=== PATIENT | female | born 1980 | race Caucasian/White ===

== ENCOUNTER 2017-10-06 11:19 | Emergency (ER) | payer MEDICAID ==
[~2017-10-06] VITALS: Ht 172.7 cm; Wt 108.9 kg
[~2017-10-06 11:19] MED LIST: ACETAMINOPHEN-1 EAC1 PO; BACTRIM DS TAB1 EACH PO; BUTALB-APAP-CA1 EACH PO; CIPROFLOXACIN500 M1 PO; CLEOCIN HCL300 MG PO; FLEXERIL PO; GERD MED; HEARTBURN TREAT15 MG PO; HYDROCODON-ACE1 EAC7 PO; HYDROCODONE-AP1 EAC6 PO; IBUPROFEN 600600 M1 PO; IBUPROFEN 800800 M1 PO; KEFLEX500 MG PO; LIORESAL 10 MG10 MG PO; NAPROSYN500 MG PO; NORCO 5-325 TA1 EAC1 PO; NORCO 5-325 TA1 EACH PO; OMEPRAZOLE40 MG PO; PERCOCET 5-3251 EACH PO; PHENADOZ12.5 MG RC; PREDNISONE 10 M10 MG PO; PRILOSEC 20 MG20 MG PO; PRILOSEC20 MG PO; PYRIDIUM200 MG PO; RANITIDINE 150150 M1; ROBAXIN500 MG PO; TRAMADOL 50 MG50 MG; TRAMADOL 50 MG50 MG PO; VISTARIL 25 MG25 M1 PO; ZOFRAN ODT4 MG PO; ZOFRAN4 MG PO
[2017-10-06] MEDS ORDERED: NOHOMEMEDICATIONS (11:48)
[2017-10-06] MEDS ORDERED: NORFLEX100 MG PO (15:11)
[2017-10-06] MEDS ORDERED: IBUPROFEN 600600 M1 PO (15:11)
[2017-10-06 15:23] VITALS: BP 142/92
== END 2017-10-06 15:24 | disposition home or self-care (01) ==
LOC: M.ERS 11:19
DX: S13.4XXA Sprain of ligaments of cervical spine, initial encounter (principal); S53.402A Unspecified sprain of left elbow, initial encounter; S39.012A Strain of muscle, fascia and tendon of lower back, initial encounter; S00.93XA Contusion of unspecified part of head, initial encounter; K21.9 Gastro-esophageal reflux disease without esophagitis; G43.909 Migraine, unspecified, not intractable, without status migrainosus; F17.210 Nicotine dependence, cigarettes, uncomplicated; Z88.0 Allergy status to penicillin; Z88.8 Allergy status to other drugs, medicaments and biological substances; W00.0XXA Fall on same level due to ice and snow, initial encounter; Y93.89 Activity, other specified; Y92.89 Other specified places as the place of occurrence of the external cause; Y99.8 Other external cause status

== ENCOUNTER 2018-02-25 05:15 | Emergency (ER) | payer OTHER ==
[~2018-02-25] VITALS: Ht 172.7 cm; Wt 104.3 kg
[~2018-02-25 05:15] MED LIST changes: +NOHOMEMEDICATIONS; +NORFLEX100 MG PO
[2018-02-25] MEDS ORDERED: PROMETHAZINE/C118 ML PO (05:29)
[2018-02-25] MEDS ORDERED: PREDNISONE50 MG PO (05:29)
[2018-02-25 06:10] VITALS: BP 166/78
== END 2018-02-25 06:12 | disposition home or self-care (01) ==
LOC: M.ERS 05:15
DX: J40 Bronchitis, not specified as acute or chronic (principal); G43.909 Migraine, unspecified, not intractable, without status migrainosus; K21.9 Gastro-esophageal reflux disease without esophagitis; F17.210 Nicotine dependence, cigarettes, uncomplicated; Z88.0 Allergy status to penicillin; Z91.041 Radiographic dye allergy status

== ENCOUNTER 2018-04-09 11:02 | Emergency (ER) | payer OTHER, MEDICAID ==
[~2018-04-09] VITALS: Ht 172.7 cm; Wt 108.9 kg
[~2018-04-09 11:02] MED LIST changes: +PREDNISONE50 MG PO; +PROMETHAZINE/C118 ML PO
[2018-04-09] MEDS ORDERED: TORADOL 10 MG T10 MG PO (13:01)
[2018-04-09] MEDS ORDERED: ROBAXIN 750 MG750 M1 PO (13:01)
[2018-04-09 13:18] VITALS: BP 130/88
== END 2018-04-09 13:23 | disposition home or self-care (01) ==
LOC: M.ERS 11:02
DX: M54.31 Sciatica, right side (principal); G43.909 Migraine, unspecified, not intractable, without status migrainosus; K21.9 Gastro-esophageal reflux disease without esophagitis; F17.210 Nicotine dependence, cigarettes, uncomplicated; Z88.0 Allergy status to penicillin; Z91.041 Radiographic dye allergy status; Z91.013 Allergy to seafood

== ENCOUNTER 2018-05-11 18:53 | Emergency (ER) | payer OTHER, MEDICAID ==
[~2018-05-11] VITALS: Ht 172.7 cm; Wt 108.9 kg
[~2018-05-11 18:53] MED LIST changes: +ROBAXIN 750 MG750 M1 PO; +TORADOL 10 MG T10 MG PO
[2018-05-11 19:29] LABS: ABSOLUTE BASOPHILS 0.1 thou/uL (0.0-0.2); ABSOLUTE EOSINOPHILS 0.1 thou/uL (0.0-0.7); ABSOLUTE LYMPHOCYTES 2.4 thou/uL (0.8-5.3); ABSOLUTE MONOCYTES 0.6 thou/uL (0.0-1.2); ABSOLUTE NEUTROPHILS 8.6 thou/uL (1.6-8.1); BASOPHILS 1.1 %; EOSINOPHILS 0.8 %; HEMATOCRIT 40.4 % (37.0-47.0); HEMOGLOBIN 13.2 gm/dL (12.0-15.0); LYMPHOCYTES 20.1 %; MCH 27.7 pg (26.0-34.0); MCHC 32.6 g/dL (28.0-37.0); MCV 84.9 fL (80.0-100.0); MONOCYTES 4.9 %; MPV 8.3 fl. (7.2-11.1); NUCLEATED RBCS 0 /100WBC; PLATELET COUNT* 341 thou/uL (150-400); POLYS 73.1 %; RBC 4.76 mil/uL (4.20-5.00); RDW-CV 15.8 % (10.5-14.5); WBC 11.8 thou/uL (4.0-11.0)
[2018-05-11 19:35] LABS: ANION GAP 11 mmol/L (7-16); BUN 13 mg/dL (7-18); CALCIUM 8.8 mg/dL (8.5-10.1); CHLORIDE 103 mmol/L (98-107); CO2 25 mmol/L (21-32); GLUCOSE 105 mg/dL (70-99); POTASSIUM 3.6 mmol/L (3.5-5.1); SODIUM 139 mmol/L (136-145)
[2018-05-11 19:45] LABS: ALBUMIN 3.5 g/dL (3.4-5.0); ALKALINE PHOSPHATASE 99 U/L (46-116); LIPASE 284 U/L (73-393); MAGNESIUM 1.8 mg/dL (1.8-2.4); NT-PRO BRAIN NAT PEPTIDE 22 pg/mL (<300); SGOT 18 U/L (15-37); SGPT 23 U/L (30-65); TOTAL BILIRUBIN 0.2 mg/dL (<0.1-1.0); TOTAL PROTEIN 7.1 g/dL (6.4-8.2); TROPONIN-I LEVEL <0.06 ng/mL (<0.06)
[2018-05-11] MEDS ORDERED: DIPHENHIST50 MG PO (21:54)
[2018-05-11] MEDS ORDERED: EPIPEN0.3 MG/0.1 IM (21:54)
[2018-05-11] MEDS ORDERED: PREDNISONE50 MG PO (21:54)
[2018-05-11 22:22] VITALS: BP 128/87
--- NOTE | 2018-05-12 10:38 | EKG ---
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 05/12/18 1038 1858 57 Daniel Mcmillan MD, [facility] /EPI
--- NOTE | 2018-05-12 10:40 | EKG ---
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
== END 2018-05-11 22:23 | disposition home or self-care (01) ==
LOC: M.ERS 18:53
PROVIDERS: Emergency Medicine Emergency Medical Services
DX: L53.9 Erythematous condition, unspecified (principal); T78.40XA Allergy, unspecified, initial encounter; K21.9 Gastro-esophageal reflux disease without esophagitis; F17.210 Nicotine dependence, cigarettes, uncomplicated; Z88.0 Allergy status to penicillin; Z91.041 Radiographic dye allergy status; Z91.013 Allergy to seafood; G43.909 Migraine, unspecified, not intractable, without status migrainosus; X58.XXXA Exposure to other specified factors, initial encounter

== ENCOUNTER 2018-10-14 11:22 | Emergency (ER) | payer OTHER, MEDICAID ==
[~2018-10-14] VITALS: Ht 172.7 cm; Wt 108.9 kg
[~2018-10-14 11:22] MED LIST changes: +DIPHENHIST50 MG PO; +EPIPEN0.3 MG/0.1 IM
[2018-10-14 12:03] LABS: URINE BILIRUBIN NEGATIVE (Negative); URINE BLOOD 2+ (Negative); URINE CLARITY CLEAR; URINE COLOR YELLOW; URINE GLUCOSE-RANDOM NEGATIVE (Negative); URINE KETONES NEGATIVE (Negative); URINE LEUKOCYTES-REFLEX NEGATIVE (Negative); URINE NITRITE-REFLEX NEGATIVE (Negative); URINE PROTEIN NEGATIVE (Negative); URINE SPECIFIC GRAVITY 1.025 (1.005-1.030); URINE UROBILINOGEN 0.2 E.U./dl (0.2-1.0)
[2018-10-14 12:17] LABS: INFLUENZA A ANTIGEN None Detected (None Detect); INFLUENZA B ANTIGEN None Detected (None Detect)
[2018-10-14 12:18] LABS: BACTERIA-REFLEX 1-9 Few /HPF (None Seen); CASTS None Seen /LPF (None Seen); CRYSTALS None Seen /LPF (None Seen); MUCUS >6 Heavy strn/LPF (None Seen); SQUAMOUS 0-3 Few /LPF (0-3); URINE RBC 3-10 Few /HPF (0-2); URINE WBC-REFLEX 0-5 Rare /HPF (0-5)
[2018-10-14 12:21] LABS: ABSOLUTE LYMPHOCYTES 0.7 thou/uL (0.8-5.3); ABSOLUTE MONOCYTES 0.4 thou/uL (0.0-1.2); ABSOLUTE NEUTROPHILS 3.4 thou/uL (1.6-8.1); BASOPHILS 0.4 %; EOSINOPHILS 0.1 %; HEMATOCRIT 40.7 % (37.0-47.0); HEMOGLOBIN 13.4 gm/dL (12.0-15.0); LYMPHOCYTES 15.9 %; MCH 27.7 pg (26.0-34.0); MCHC 32.9 g/dL (28.0-37.0); MCV 84.2 fL (80.0-100.0); MONOCYTES 8.6 %; MPV 8.8 fl. (7.2-11.1); NUCLEATED RBCS 0 /100WBC; PLATELET COUNT* 212 thou/uL (150-400); RBC 4.83 mil/uL (4.20-5.00); RDW-CV 15.2 % (10.5-14.5); WBC 4.5 thou/uL (4.0-11.0)
[2018-10-14 12:29] LABS: ANION GAP 9 mmol/L (7-16); BUN 10 mg/dL (7-18); CALCIUM 8.3 mg/dL (8.5-10.1); CHLORIDE 100 mmol/L (98-107); CO2 28 mmol/L (21-32); CREATININE 0.8 mg/dL (0.6-1.3); GLUCOSE 101 mg/dL (70-99); POTASSIUM 3.4 mmol/L (3.5-5.1); SODIUM 137 mmol/L (136-145)
[2018-10-14 12:38] LABS: ALKALINE PHOSPHATASE 92 U/L (46-116); LIPASE 281 U/L (73-393); SGOT 24 U/L (15-37); SGPT 28 U/L (30-65); TOTAL BILIRUBIN 0.2 mg/dL (<0.1-1.0); TOTAL PROTEIN 7.1 g/dL (6.4-8.2); TROPONIN-I LEVEL <0.06 ng/mL (<0.06)
[2018-10-14] MEDS ORDERED: MEDROLDOSEPACK PO (13:28)
[2018-10-14] MEDS ORDERED: TESSALON PERLE100 MG PO (13:28)
[2018-10-14] MEDS ORDERED: ZPAK PO (13:28)
[2018-10-14] MEDS ORDERED: VENTOLIN HFA 1818 GM INH (13:28)
[2018-10-14] MEDS ORDERED: ONDANSETRON HCL4 M2 PO (13:34)
[2018-10-14 13:44] VITALS: BP 119/82
--- NOTE | 2018-10-14 16:29 | EKG ---
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 10/14/18 1629 1206 1206 Bryon Cisse MD, [facility] /EPI
== END 2018-10-14 13:45 | disposition home or self-care (01) ==
LOC: M.ERS 11:22
PROVIDERS: Nurse Practitioner Family
DX: J18.0 Bronchopneumonia, unspecified organism (principal); K52.89 Other specified noninfective gastroenteritis and colitis; F17.210 Nicotine dependence, cigarettes, uncomplicated; G43.909 Migraine, unspecified, not intractable, without status migrainosus; K21.9 Gastro-esophageal reflux disease without esophagitis; Z88.0 Allergy status to penicillin; Z91.013 Allergy to seafood; Z91.041 Radiographic dye allergy status

== ENCOUNTER 2019-09-28 07:24 | Emergency (ER) | payer OTHER ==
[~2019-09-28] VITALS: Ht 172.7 cm; Wt 104.3 kg
[~2019-09-28 07:24] MED LIST changes: +MEDROLDOSEPACK PO; +ONDANSETRON HCL4 M2 PO; +TESSALON PERLE100 MG PO; +VENTOLIN HFA 1818 GM INH; +ZPAK PO
[2019-09-28 07:56] LABS: INFLUENZA A ANTIGEN Negative (Negative); INFLUENZA B ANTIGEN Negative (Negative)
[2019-09-28] MEDS ORDERED: TAMIFLU75 MG PO (08:00)
[2019-09-28 08:13] VITALS: BP 166/86
== END 2019-09-28 08:13 | disposition home or self-care (01) ==
LOC: M.ERS 07:24
PROVIDERS: Emergency Medicine
DX: B34.9 Viral infection, unspecified (principal); F17.210 Nicotine dependence, cigarettes, uncomplicated; G43.909 Migraine, unspecified, not intractable, without status migrainosus; K21.9 Gastro-esophageal reflux disease without esophagitis; Z88.0 Allergy status to penicillin; Z88.8 Allergy status to other drugs, medicaments and biological substances

== ENCOUNTER 2019-10-25 15:32 | Emergency (ER) | payer OTHER ==
[~2019-10-25] VITALS: Ht 172.7 cm; Wt 104.3 kg
[~2019-10-25 15:32] MED LIST changes: +TAMIFLU75 MG PO
[2019-10-25] MEDS ORDERED: MELOXICAM15 MG PO (16:45)
[2019-10-25 16:57] VITALS: BP 160/88
== END 2019-10-25 16:58 | disposition home or self-care (01) ==
LOC: M.ERS 15:32
DX: M25.572 Pain in left ankle and joints of left foot (principal); K21.9 Gastro-esophageal reflux disease without esophagitis; G43.909 Migraine, unspecified, not intractable, without status migrainosus; F17.210 Nicotine dependence, cigarettes, uncomplicated; Z91.013 Allergy to seafood; Z88.0 Allergy status to penicillin; Z88.8 Allergy status to other drugs, medicaments and biological substances

== ENCOUNTER 2020-07-09 15:06 | Emergency (ER) | payer MEDICAID ==
[~2020-07-09] VITALS: Ht 172.7 cm; Wt 108.9 kg
[~2020-07-09 15:06] MED LIST changes: +MELOXICAM15 MG PO
[2020-07-09] MEDS ORDERED: OMEPRAZOLE 20 M20 M1 PO (15:15)
[2020-07-09 16:37] LABS: ABSOLUTE EOSINOPHILS 0.2 thou/uL (0.0-0.7); ABSOLUTE LYMPHOCYTES 2.4 thou/uL (0.8-5.3); ABSOLUTE MONOCYTES 0.5 thou/uL (0.0-1.2); ABSOLUTE NEUTROPHILS 5.7 thou/uL (1.6-8.1); BASOPHILS 0.4 %; EOSINOPHILS 2.4 %; HEMATOCRIT 37.4 % (37.0-47.0); HEMOGLOBIN 12.3 gm/dL (12.0-15.0); LYMPHOCYTES 26.8 %; MCH 27.2 pg (26.0-34.0); MCHC 32.8 g/dL (28.0-37.0); MCV 82.9 fL (80.0-100.0); MONOCYTES 6.1 %; MPV 7.6 fl. (7.2-11.1); NUCLEATED RBCS 0 /100WBC; PLATELET COUNT* 329 thou/uL (150-400); POLYS 64.3 %; RBC 4.52 mil/uL (4.20-5.00); RDW-CV 14.4 % (10.5-14.5); WBC 8.9 thou/uL (4.0-11.0)
[2020-07-09 16:43] LABS: ANION GAP 7 mmol/L (7-16); BUN 11 mg/dL (7-18); CALCIUM 8.2 mg/dL (8.5-10.1); CHLORIDE 106 mmol/L (98-107); CO2 27 mmol/L (21-32); CREATININE 0.8 mg/dL (0.6-1.3); GLUCOSE 85 mg/dL (70-99); POTASSIUM 3.9 mmol/L (3.5-5.1); SODIUM 140 mmol/L (136-145)
[2020-07-09 16:48] LABS: ALBUMIN 3.3 g/dL (3.4-5.0); ALKALINE PHOSPHATASE 96 U/L (46-116); SGOT 15 U/L (15-37); SGPT 27 U/L (30-65); TOTAL PROTEIN 7.2 g/dL (6.4-8.2)
[2020-07-09 16:49] LABS: TOTAL BILIRUBIN < 0.1 mg/dL (<0.1-1.0)
[2020-07-09 17:15] LABS: URINE BILIRUBIN NEGATIVE (Negative); URINE BLOOD 3+ (Negative); URINE CLARITY CLOUDY; URINE COLOR RED; URINE GLUCOSE-RANDOM NEGATIVE (Negative); URINE KETONES NEGATIVE (Negative); URINE LEUKOCYTES-REFLEX NEGATIVE (Negative); URINE NITRITE-REFLEX NEGATIVE (Negative); URINE PROTEIN 2+ (Negative); URINE SPECIFIC GRAVITY >= 1.030 (1.005-1.030); URINE UROBILINOGEN 0.2 E.U./dl (0.2-1.0)
[2020-07-09 17:21] LABS: AMP/METHAMP Negative (Negative); BARBITURATES Negative (Negative); BENZODIAZEPINES Negative (Negative); COCAINE Negative (Negative); METHADONE Negative (Negative); OPIATES POSITIVE (Negative); PCP Negative (Negative); THC Negative (Negative)
[2020-07-09 17:28] LABS: SQUAMOUS 4-10 Moderate /LPF (0-3); URINE RBC >20 Many /HPF (0-2); URINE WBC-REFLEX 6-15 Few /HPF (0-5)
[2020-07-09 17:29] LABS: CASTS None Seen /LPF (None Seen); CRYSTALS None Seen /LPF (None Seen); MUCUS None Seen strn/LPF (None Seen)
[2020-07-09 17:59] VITALS: BP 130/65
--- NOTE | 2020-07-10 10:33 | EKG ---
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 : 1980 Requested By: Virginia Hargrove Order Number: [id number] MD: Daniel Mcmillan Measurements Intervals [place] Rate: 89 P: 41 [place]: 158 QRS: 26 QRSD: 91 T: 32 QT: 338 QTc: 412 Interpretive Statements Sinus rhythm septal q waves noted Low voltage, precordial leads Compared to ECG 10/14/2018 12:06:37 Sinus tachycardia no longer present Electronically Signed On 07-10-2020 10:33:32 CDT by Daniel Mcmillan [email or web address] <ELECTRONICALLY SIGNED> By: Daniel Mcmillan MD, [facility] 07/10/20 1033 10 10 Daniel Mcmillan MD, [facility] /EPI
== END 2020-07-09 18:00 | disposition home or self-care (01) ==
LOC: M.ERS 15:06
PROVIDERS: Personal Emergency Response Attendant
DX: R00.2 Palpitations (principal); R07.9 Chest pain, unspecified; Z71.1 Person with feared health complaint in whom no diagnosis is made; G43.909 Migraine, unspecified, not intractable, without status migrainosus; K21.9 Gastro-esophageal reflux disease without esophagitis; Z79.899 Other long term (current) drug therapy; Z88.0 Allergy status to penicillin; Z91.041 Radiographic dye allergy status; Z91.013 Allergy to seafood; F17.210 Nicotine dependence, cigarettes, uncomplicated

== ENCOUNTER 2020-08-16 10:47 | Emergency (ER) | payer OTHER ==
[~2020-08-16] VITALS: Ht 172.7 cm; Wt 104.3 kg
[~2020-08-16 10:47] MED LIST changes: +OMEPRAZOLE 20 M20 M1 PO
[2020-08-16] MEDS ORDERED: IBUPROFEN 800800 M1 PO (12:43)
[2020-08-16] MEDS ORDERED: BUTALB-APAP-CA1 EACH PO (12:43)
[2020-08-16] MEDS ORDERED: FLEXERIL PO (12:43)
[2020-08-16 13:00] VITALS: BP 165/87
== END 2020-08-16 13:05 | disposition home or self-care (01) ==
LOC: M.ERS 10:47
DX: S16.1XXA Strain of muscle, fascia and tendon at neck level, initial encounter (principal); S00.83XA Contusion of other part of head, initial encounter; G43.909 Migraine, unspecified, not intractable, without status migrainosus; K21.9 Gastro-esophageal reflux disease without esophagitis; F17.210 Nicotine dependence, cigarettes, uncomplicated; Z88.0 Allergy status to penicillin; Z91.041 Radiographic dye allergy status; Z91.013 Allergy to seafood; Y04.2XXA Assault by strike against or bumped into by another person, initial encounter; Y93.89 Activity, other specified; Y92.89 Other specified places as the place of occurrence of the external cause; Y99.8 Other external cause status

== ENCOUNTER 2020-12-23 11:51 | Emergency (ER) | payer OTHER ==
[~2020-12-23] VITALS: Ht 172.7 cm; Wt 108.9 kg
[2020-12-23] MEDS ORDERED: OMEPRAZOLE40 MG PO (12:07)
[2020-12-23] MEDS ORDERED: NORCO5 PO (12:54)
[2020-12-23] MEDS ORDERED: VALACYCLOVIR1000 MG PO (12:54)
[2020-12-23] MEDS ORDERED: IBUPROFEN 600600 M1 PO (12:54)
[2020-12-23] MEDS ORDERED: LIDOCAINE VISC100 ML TOP (12:54)
[2020-12-23 13:06] VITALS: BP 142/86
== END 2020-12-23 13:08 | disposition home or self-care (01) ==
LOC: M.ERS 11:51
DX: B02.9 Zoster without complications (principal); G43.909 Migraine, unspecified, not intractable, without status migrainosus; K21.9 Gastro-esophageal reflux disease without esophagitis; Z88.0 Allergy status to penicillin; Z91.041 Radiographic dye allergy status; Z91.013 Allergy to seafood

== ENCOUNTER 2020-12-27 09:28 | Emergency (ER) | payer OTHER ==
[~2020-12-27] VITALS: Ht 172.7 cm; Wt 108.9 kg
[~2020-12-27 09:28] MED LIST changes: +LIDOCAINE VISC100 ML TOP; +NORCO5 PO; +VALACYCLOVIR1000 MG PO
[2020-12-27] MEDS ORDERED: PREDNISONE 10 M10 MG PO (10:18)
[2020-12-27 10:20] VITALS: BP 187/97
== END 2020-12-27 10:20 | disposition home or self-care (01) ==
LOC: M.ERS 09:28
DX: L27.0 Generalized skin eruption due to drugs and medicaments taken internally (principal); T37.5X5A Adverse effect of antiviral drugs, initial encounter; G43.909 Migraine, unspecified, not intractable, without status migrainosus; K21.9 Gastro-esophageal reflux disease without esophagitis; F17.210 Nicotine dependence, cigarettes, uncomplicated; Z87.42 Personal history of other diseases of the female genital tract; Z86.018 Personal history of other benign neoplasm; Z79.899 Other long term (current) drug therapy; Z88.0 Allergy status to penicillin; Z91.041 Radiographic dye allergy status; Z91.013 Allergy to seafood; Y92.89 Other specified places as the place of occurrence of the external cause

== ENCOUNTER 2021-02-22 09:00 | Emergency (ER) | payer OTHER ==
[~2021-02-22] VITALS: Ht 172.7 cm; Wt 117.9 kg
[2021-02-22 09:38] VITALS: BP 160/90
== END 2021-02-22 09:39 | disposition home or self-care (01) ==
LOC: M.ERS 09:00
DX: J02.9 Acute pharyngitis, unspecified (principal); G43.909 Migraine, unspecified, not intractable, without status migrainosus; K21.9 Gastro-esophageal reflux disease without esophagitis; F17.210 Nicotine dependence, cigarettes, uncomplicated; Z88.0 Allergy status to penicillin; Z79.899 Other long term (current) drug therapy

== ENCOUNTER 2021-05-16 20:54 | Emergency (ER) | payer OTHER ==
[~2021-05-16] VITALS: Ht 172.7 cm; Wt 115.7 kg
[2021-05-16] MEDS ORDERED: OMEPRAZOLE 20 M20 M1 PO (21:26)
[2021-05-16] MEDS ORDERED: ACETAMINOPHEN-1 EAC2 PO (23:44)
[2021-05-16] MEDS ORDERED: IBUPROFEN 800800 MG PO (23:44)
[2021-05-16] MEDS ORDERED: DOXYCYCLINE 10100 M2 PO (23:44)
[2021-05-17 00:04] VITALS: BP 151/100
== END 2021-05-17 00:04 | disposition home or self-care (01) ==
LOC: M.ERS 20:54
DX: K08.89 Other specified disorders of teeth and supporting structures (principal); H92.01 Otalgia, right ear; K21.9 Gastro-esophageal reflux disease without esophagitis; F17.210 Nicotine dependence, cigarettes, uncomplicated; Z79.899 Other long term (current) drug therapy; Z88.6 Allergy status to analgesic agent; Z88.0 Allergy status to penicillin; Z91.013 Allergy to seafood

== ENCOUNTER 2021-07-18 11:56 | Emergency (ER) | payer OTHER ==
[~2021-07-18] VITALS: Ht 172.7 cm; Wt 113.4 kg
[~2021-07-18 11:56] MED LIST changes: +ACETAMINOPHEN-1 EAC2 PO; +DOXYCYCLINE 10100 M2 PO; +IBUPROFEN 800800 MG PO
[2021-07-18 12:14] VITALS: BP 171/100
== END 2021-07-18 13:44 | disposition left against medical advice (07) ==
LOC: M.ERS 11:56
DX: S00.33XA Contusion of nose, initial encounter (principal); G43.909 Migraine, unspecified, not intractable, without status migrainosus; K21.9 Gastro-esophageal reflux disease without esophagitis; F17.210 Nicotine dependence, cigarettes, uncomplicated; Z79.899 Other long term (current) drug therapy; Z91.02 Food additives allergy status; Z91.013 Allergy to seafood; Z88.0 Allergy status to penicillin; V87.8XXA Person injured in other specified noncollision transport accidents involving motor vehicle (traffic), initial encounter; Y93.89 Activity, other specified; Y92.89 Other specified places as the place of occurrence of the external cause; Y99.8 Other external cause status